=== PATIENT | female | born 1965 | race Asian ===

== ENCOUNTER 2019-01-27 17:09 | Inpatient (IN) | payer MEDICARE ==
[2019-01-27 18:00] VITALS: BMI 23.1
--- NOTE | 2019-01-27 18:01 | PDOC ---
History of Present Illness - General Chief Complaint: Injury Stated Complaint: FALL Time Seen by Provider: 01/27/19 17:54 History Source: Patient Exam Limitations: No Limitations - History of Present Illness Initial Comments: 01/27/19 18:10 53y M no known pmhx presents with dizziness - the patient states that yesterday she was walking down the stairs and she slipped and fell down the stairs. It was witnessed by her friend - friend said he is unsure if the patient hit her head however there was no LOC the patient seemed fine afterwards he is able to get up on her own and walk around and she was otherwise asymptomatic. This morning when she woke up she has been on feeling severely vertiginous/dizzy - states that she is unable to stand, walk around or sit up because it'll make her very nauseous and dizzy. The patient denies any headache, blurry vision, difficulty with her speech, neck pain, back pain, chest pain, palpitations, abdominal pain, blood in her stool. The patient states only problem is that when she moves she feels dizzy. The patient was brought to to the emergency department via ambulance with a c-collar. Translation provided through the patient's friend with the patient's permission Past History - Past Medical History Allergies/Adverse Reactions: Allergies Allergy/AdvReac Type Severity Reaction Status Date / Time No Known Allergies Allergy Verified 01/27/19 18:00 Home Medications: Ambulatory Orders NK [No Known Home Medication] 01/27/19 COPD: No - Suicide/Smoking/Psychosocial Hx Smoking History: Never smoked Information on smoking cessation initiated: No Hx Alcohol Use: No Drug/Substance Use Hx: No Review of Systems - Review of Systems Able to Perform ROS?: Yes Comments:: 01/27/19 18:13 Constitutional - no reported Fever, Chills, HEENT: no reported vision changes, sore throat Respiratory: no reported cough, sob, hemoptysis Cardiac: no reported chest pain, palpitations, leg swelling Abd/GI: no reported abd pain, nausea, vomiting, blood per rectum, melena, diarrhea : no reported dysuria, frequency, discharge Musculskelatal - no reported back pain, joint swelling skin - no reported bruising, erythema, rash neurological: +lightheaded/vertigo no reported headache, numbness, focal weakness, tingling, ataxia, hematologic: no reported easy bruising, easy bleeding *Physical Exam - Vital Signs Last Vital Signs Temp Pulse Resp BP Pulse Ox 97.8 F 59 L 16 95/53 L 98 01/27/19 17:15 01/27/19 17:15 01/27/19 17:15 01/27/19 17:15 01/27/19 17:15 - Physical Exam Comments: 01/27/19 18:13 GENERAL: The patient is awake, alert, and fully oriented, Nontoxic - in no acute distress. HEAD: Normocephalic, atraumatic. EYES: extraocular movements intact, sclera anicteric, conjunctiva clear. ENT: Normal voice, Moist mucous membranes. NECK: Normal range of motion, supple LUNGS: Breath sounds equal, clear to auscultation bilaterally. No wheezes, no rhonchi, no rales. HEART: Regular rate and rhythm, normal S1 and S2 without murmur, rub or gallop. ABDOMEN: Soft, nontender, normoactive bowel sounds. No guarding, no rebound. . No CVA tenderness EXTREMITIES: Normal range of motion, no edema. No clubbing or cyanosis. No cords, erythema, or tenderness. PSYCH: Normal mood, normal affect. SKIN: Warm, Dry, normal turgor, NEURO: Mental status: The patient is oriented x3. Cranial nerves: Cranial nerves II through XII are intact Motor: The upper extremities are 5 over 5 in all muscle groups. The lower extremities are 5 over 5 in all muscle groups. Negative pronator drift Sensation: Sensation is intact to light touch throughout. Cerebellar: Qkemov-[id number]-bzex is normal in both upper extremities. Heel-knee- chavez is normal in both lower extremities. rapid alternating movements are normal. Reflexes: Gait: Deferred Heart Score/ECG Review - ECG Impressions Comment:: 01/27/19 18:34 Twelve-lead EKG was performed and reviewed by me. There is normal sinus rhythm with a normal rate. Rate of 79 The axis is normal. The intervals are normal. There is normal R wave progression There are no ST or T wave abnormalities. Impression: Normal twelve-lead EKG ED Treatment Course - LABORATORY CBC & Chemistry Diagram: 01/29/19 07:30 01/29/19 07:30 Medical Decision Making - Medical Decision Making 01/27/19 18:14 53-year-old female without any past medical history presenting with suspected vertigo status post fall yesterday - without complaints of any pain, focal neurologic complaints including vision changes, dysarthria, numbness, tingling, headache, neck pain. Patient's exam is unremarkable aside her inability to tolerate significant movement - it should be if displaced otolith from her fall, we'll obtain blood work to rule out anemia, metabolic derangements, EKG to screen for arrhythmia. Give meclizine and Zofran for symptomatically relief 01/27/19 19:14 case signed ou tto dr. Mojica to fu with labs/ct results and reassess and dispo the patient *DC/Admit/Observation/Transfer Diagnosis at time of Disposition: Vertigo - Discharge Dispostion Condition at time of disposition: Stable - Referrals - Patient Instructions - Post Discharge Activity
[2019-01-27] MEDS ORDERED: MECLIZINE HCL 25 MG TABLET (FP) PO ONE (18:02)
[2019-01-27] MEDS ORDERED: SODIUM CHLORIDE 1,000 ML IV ONE (18:04)
[2019-01-27] MEDS ORDERED: METOCLOPRAMIDE HCL INJECTION 10 MG/2 ML VIAL IVPUSH ONE (18:15)
[2019-01-27] MEDS ORDERED: MECLIZINE HCL 25 MG TABLET (FP) ONE (19:12)
[2019-01-27] MEDS ORDERED: METOCLOPRAMIDE HCL INJECTION 10 MG/2 ML VIAL ONE (19:12)
[2019-01-27 19:29] LABS: BASO % 0.3 % (0-2.0); HEMATOCRIT 41.6 % (32.4-45.2); MCH 32.9 pg (25.7-33.7); MCHC 33.7 g/dl (32.0-36.0); MEAN CELL VOLUME 97.5 fl (80-96); MEAN PLT VOLUME 9.4 fl (7.5-11.1); MONO % 4.6 % (3.8-10.2); NEUT % 88.1 % (42.8-82.8); PLATELET COUNT 243 K/MM3 (134-434); RBC 4.27 M/mm3 (3.60-5.2); RDW 12.5 % (11.6-15.6); WHITE BLOOD COUNT 11.6 K/mm3 (4.0-10.0)
[2019-01-27 20:00] LABS: ALBUMIN 4.2 g/dl (3.4-5.0); ALK PHOS 80 U/L (45-117); ANION GAP 10 MMOL/L (8-16); BILIRUBIN,TOTAL 0.7 mg/dL (0.2-1); BLOOD UREA NITROGEN 16 mg/dL (7-18); CALCIUM 9.2 mg/dL (8.5-10.1); CHLORIDE 109 mmol/L (98-107); CO2 24 mmol/L (21-32); CREATININE 0.7 mg/dL (0.55-1.3); GLUCOSE,RANDOM 100 mg/dL (74-106); SGOT/AST 24 U/L (15-37); SGPT/ALT 26 U/L (13-61); SODIUM 144 mmol/L (136-145); TOT PROT 7.6 g/dl (6.4-8.2)
--- NOTE | 2019-01-27 21:02 | PDOC ---
*Physical Exam - Vital Signs Last Vital Signs Temp Pulse Resp BP Pulse Ox 97.8 F 59 L 16 95/53 L 98 01/27/19 17:15 01/27/19 17:15 01/27/19 17:15 01/27/19 17:15 01/27/19 17:15 ED Treatment Course - LABORATORY CBC & Chemistry Diagram: 01/27/19 19:09 01/27/19 19:09 - ADDITIONAL ORDERS Additional order review: Laboratory Results 01/27/19 19:09 Sodium 144 Potassium 4.0 Chloride 109 H Carbon Dioxide 24 Anion Gap 10 BUN 16 Creatinine 0.7 Est GFR (CKD-EPI)AfAm 116.27 Est GFR (CKD-EPI)NonAf 100.32 Random Glucose 100 Calcium 9.2 Total Bilirubin 0.7 AST 24 ALT 26 Alkaline Phosphatase 80 Creatine Kinase 149 Troponin I < 0.02 Total Protein 7.6 Albumin 4.2 01/27/19 19:09 RBC 4.27 MCV 97.5 H MCHC 33.7 RDW 12.5 MPV 9.4 Neutrophils % 88.1 H Lymphocytes % 7.0 L Monocytes % 4.6 Eosinophils % 0.0 Basophils % 0.3 - Medications Given in the ED: ED Medications Discontinued Medications Generic Name Dose Route Start Last Admin Trade Name Freq PRN Reason Stop Dose Admin Sodium Chloride 1,000 mls @ 1,000 mls/hr 01/27/19 18:04 01/27/19 19:19 Normal Saline - IV 01/27/19 19:03 1,000 mls/hr .Q1H ONE Administration Meclizine HCl 25 mg 01/27/19 18:02 01/27/19 19:19 Antivert - PO 01/27/19 18:03 25 mg ONCE ONE Administration Metoclopramide HCl 10 mg 01/27/19 18:15 01/27/19 19:19 Reglan Injection - IVPUSH 01/27/19 18:16 10 mg ONCE ONE Administration Medical Decision Making - Medical Decision Making 01/27/19 20:59 Received patient as signout from day team. Patient endorsing dizziness upon meeting her. No pain or other complaints. Patient's dizziness very positional No midline bony tenderness of CTL spine Patient refused Head impulse test Faint, fatiguing, R sided nystagmus while dizzy Normal test of skew Strength 5/5 in all extremities Normal FTN, no dysdiadokinesis, normal heel to chavez Patient still endorsing dizziness after meclizine, zofran and IVF Repeat vital signs 01/27/19 21:16 BP 115/70 Trial po valium 2mg, re-eval symptoms 01/27/19 21:21 CT non-con brain w/o acute injury/pathology No anemia 01/27/19 22:58 Minimal improvement with benzo, pt still endorsing severe positional vertigo, most intense when she turns to the right. I explained the Billy maneuver to the patient and she refused to attempt it will admit for observation 01/27/19 23:23 Gave report to inpatient team *DC/Admit/Observation/Transfer Diagnosis at time of Disposition: Vertigo - Referrals - Patient Instructions - Post Discharge Activity
[2019-01-27] MEDS ORDERED: diazePAM 2 MG TABLET PO ONE (21:12)
[2019-01-27] MEDS ORDERED: diazePAM 2 MG TABLET ONE (21:24)
[2019-01-27] MEDS ORDERED: MECLIZINE HCL 25 MG TABLET (FP) PO PRN (23:21)
[2019-01-27] MEDS ORDERED: LACTATED RINGERS SOLUTION 1,000 ML IV SCH (23:30)
--- NOTE | 2019-01-28 00:27 | PN ---
Teaching Attending Note Name of Resident: Pieter Shields ATTENDING PHYSICIAN STATEMENT I saw and evaluated the patient. I reviewed the resident's note and discussed the case with the resident. I agree with the resident's findings and plan as documented. SUBJECTIVE: Seen and examined; please refer to resident note for further historical information. Briefly, yesterday she sustained a fall and hit the R-posterior part of her head. No dizziness before or after. She was woken by vertigo sx overnight worse with head turning associated with rotational motion. She was having a hard time sitting up due to the sx. Refused Eply maneuver and repeat [place] Halpike. No nystagmus when I saw her. Head CT negative aside for involutional changes. Requested to observe patient for intractable vertigo; got 1x meclizine and 1x valium in ER. No Rx meds at home. 10 sys ROS done and negative aside from HPI PMH, PSH, FH, SH reviewed Home Medications Medication Instructions Recorded NK [No Known Home Medication] 01/27/19 OBJECTIVE: VS, labs, imaging reviewed NAD, AAO, resting in bed NC AT EOMI PERRLA RRR s1/2 no mgr Lungs CTAB, w/ sym exp NT ND +BS CN2-12 wnl, no fnd, no horizontal or vertical nystagmus, moves all 4 extremities Normal mood, appropriate affect EKG reviewed; no acute ischemic changes with nsr CT head reviewed CT neck pending ASSESSMENT AND PLAN: Patient presents from home with intractable vertigo after a fall 1) Vertigo -Give another dose of meclizine and valium; she had improvement with the initial dose of valium given in ER. Will make both available PRN. -Offer eply maneuver in AM -Neuro checks; if any change in neuro status of course broaden ddx and will consider further neuroimaging/recalling neuro. -As poor PO intake today due to her sx will give some LR overnight and ensure she is not orthostatic. Full Code
--- NOTE | 2019-01-28 00:37 | HP ---
CHIEF COMPLAINT: dizziness PCP: None HISTORY OF PRESENT ILLNESS: 53-year-old female with no past medical history presents to the hospital for one day of dizziness. Sure reports that she had a mechanical fall yesterday with minor injury to her right posterior Head.She states she felt normal afterwords and then later went to sleep. She states that when she woke up she felt severely vertiginous. She states that moving from right to left makes it worse, and sitting up, exacerbates the dizziness. She reports it feels like the room is spinning.She did not take anything for the dizziness. She denies this ever happening to her in the past.She denies any nausea, vomiting, diarrhea, fevers, chills, chest pain, or shortness of breath. She denies any sick contacts , recent travel, or any other history of medical issues. She reports that she feels slightly better after receiving the meclizine and Valium in the emergency room. ER course was notable for: (1) (2) (3) Recent Travel: none PAST MEDICAL HISTORY: none PAST SURGICAL HISTORY: none Social History: Smoking: never Alcohol: never Drugs: never Family History: denies Allergies No Known Allergies Allergy (Verified 01/27/19 18:00) HOME MEDICATIONS: Home Medications Medication Instructions Recorded NK [No Known Home Medication] 01/27/19 REVIEW OF SYSTEMS CONSTITUTIONAL: Absent: fever, chills, diaphoresis, generalized weakness, malaise, loss of appetite, weight change HEENT: Absent: rhinorrhea, nasal congestion, throat pain, throat swelling, difficulty swallowing, mouth swelling, ear pain, eye pain, visual changes CARDIOVASCULAR: Absent: chest pain, syncope, palpitations, irregular heart rate, lightheadedness , peripheral edema RESPIRATORY: Absent: cough, shortness of breath, dyspnea with exertion, orthopnea, wheezing, stridor, hemoptysis GASTROINTESTINAL: Absent: abdominal pain, abdominal distension, nausea, vomiting, diarrhea, constipation, melena, hematochezia GENITOURINARY: Absent: dysuria, frequency, urgency, hesitancy, hematuria, flank pain, genital pain MUSCULOSKELETAL: Absent: myalgia, arthralgia, joint swelling, back pain, neck pain SKIN: Absent: rash, itching, pallor HEMATOLOGIC/IMMUNOLOGIC: Absent: easy bleeding, easy bruising, lymphadenopathy, frequent infections ENDOCRINE: Absent: unexplained weight gain, unexplained weight loss, heat intolerance, cold intolerance NEUROLOGIC: dizziness Absent: headache, focal weakness or paresthesias, unsteady gait, seizure, mental status changes, bladder or bowel incontinence PSYCHIATRIC: Absent: anxiety, depression, suicidal or homicidal ideation, hallucinations. PHYSICAL EXAMINATION Vital Signs - 24 hr 01/27/19 01/27/19 17:15 21:15 Temperature 97.8 F 97.9 F Pulse Rate 59 L Pulse Rate [ 87 Apical] Respiratory 16 20 Rate Blood Pressure 95/53 L Blood Pressure 115/70 [Left Arm] O2 Sat by Pulse 98 100 Oximetry (%) GENERAL: A&Ox3, no acute distress EYES: PERRLA, EOMI ENT: Moist mucus membranes NECK: No JVD LUNGS: CTA, no wheezes HEART: RRR, no murmurs ABDOMEN: Soft, nontender, BS present MUSCULOSKELETAL: No CVA Tenderness EXTREMITIES: 2+ pulses, no edema. NEUROLOGICAL: Cranial nerves II-XII intact. no focal deficits Laboratory Results - last 24 hr 01/27/19 01/27/19 19:09 19:09 WBC 11.6 H RBC 4.27 Hgb 14.0 Hct 41.6 MCV 97.5 H MCH 32.9 MCHC 33.7 RDW 12.5 Plt Count 243 MPV 9.4 Absolute Neuts (auto) 10.2 H Neutrophils % 88.1 H Lymphocytes % 7.0 L Monocytes % 4.6 Eosinophils % 0.0 Basophils % 0.3 Nucleated RBC % 0 Sodium 144 Potassium 4.0 Chloride 109 H Carbon Dioxide 24 Anion Gap 10 BUN 16 Creatinine 0.7 Est GFR (CKD-EPI)AfAm 116.27 Est GFR (CKD-EPI)NonAf 100.32 Random Glucose 100 Calcium 9.2 Total Bilirubin 0.7 AST 24 ALT 26 Alkaline Phosphatase 80 Creatine Kinase 149 Troponin I < 0.02 Total Protein 7.6 Albumin 4.2 ASSESSMENT/PLAN: 53-year-old female with no past medical history presents to the hospital for one day of dizziness. #Benign Positional Vertigo: Based on history and constellation of symptoms I suspect this patient may have benign positional vertigo, less likely to have labyrinthitis or vestibular neuritis. Less likely central cause of vertigo. This may have occurred due to her. 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 #Disposition -Admit obs, anticipate discharge tomorrow Visit type - Emergency Visit Emergency Visit: Yes ED Registration Date: 01/27/19 Care time: The patient presented to the Emergency Department on the above date and was hospitalized for further evaluation of their emergent condition. - New Patient This patient is new to me today: Yes Date on this admission: 01/28/19 - Critical Care Critical Care patient: No
[2019-01-28] MEDS: MECLIZINE HCL 25 MG TABLET (FP) PO SCH ×3 (09:09→21:42)
[2019-01-28] MEDS: diazePAM 2 MG TABLET PO PRN (09:09)
[2019-01-28] MEDS: ENOXAPARIN NA (PORCINE) 40 MG/0.4 ML DISP.SYRIN SQ SCH (09:09)
[2019-01-28 09:24] LABS: HEMATOCRIT 33.9 % (32.4-45.2); HEMOGLOBIN 11.8 GM/dL (10.7-15.3); MCH 33.6 pg (25.7-33.7); MCHC 34.9 g/dl (32.0-36.0); MEAN CELL VOLUME 96.3 fl (80-96); MEAN PLT VOLUME 8.8 fl (7.5-11.1); PLATELET COUNT 228 K/MM3 (134-434); RBC 3.53 M/mm3 (3.60-5.2); RDW 12.7 % (11.6-15.6); WHITE BLOOD COUNT 8.8 K/mm3 (4.0-10.0)
[2019-01-28 09:47] LABS: CALCIUM 8.5 mg/dL (8.5-10.1); CREATININE 0.7 mg/dL (0.55-1.3); MAGNESIUM 2.6 mg/dL (1.8-2.4); POTASSIUM 3.4 mmol/L (3.5-5.1)
[2019-01-28] MEDS ORDERED: POTASSIUM CHLORIDE TABS 20 MEQ TABLET.ER (FP) PO ONE ×2 (12:24→22:00)
--- NOTE | 2019-01-28 13:01 | PN ---
Physical Exam: SUBJECTIVE: Patient seen and examined this AM. Daughter translated conversation. She states she is feeling worse today than yesterday. Endorses that she feels like the room is spinning around her. She also endorses nausea yesterday, but none this AM. OBJECTIVE: Vital Signs Period Temp Pulse Resp BP Sys/Coyle Pulse Ox Last 24 Hr 97.8 F-98.2 F 59-87 16-20 95-115/53-70 94-100 GEN: A&O, no acute distress HEENT: Moist mucus membranes, mild facial flushing/erythema HEART: RRR, no murmur noted LUNGS: CTA b/l no wheezes noted ABDOMEN: Soft, nontender, normoactive bowel sounds EXTREMITIES: no peripheral edema or calf tenderness, good capillary refill NEURO: CN II-XII in tact, no focal neurological deficits Laboratory Results - last 24 hr 01/27/19 01/27/19 01/28/19 19:09 19:09 08:55 WBC 11.6 H 8.8 RBC 4.27 3.53 L Hgb 14.0 11.8 Hct 41.6 33.9 D MCV 97.5 H 96.3 H MCH 32.9 33.6 MCHC 33.7 34.9 RDW 12.5 12.7 Plt Count 243 228 MPV 9.4 8.8 Absolute Neuts (auto) 10.2 H Neutrophils % 88.1 H Lymphocytes % 7.0 L Monocytes % 4.6 Eosinophils % 0.0 Basophils % 0.3 Nucleated RBC % 0 Sodium 144 Potassium 4.0 Chloride 109 H Carbon Dioxide 24 Anion Gap 10 BUN 16 Creatinine 0.7 Est GFR (CKD-EPI)AfAm 116.27 Est GFR (CKD-EPI)NonAf 100.32 Random Glucose 100 Calcium 9.2 Phosphorus Magnesium Total Bilirubin 0.7 AST 24 ALT 26 Alkaline Phosphatase 80 Creatine Kinase 149 Troponin I < 0.02 Total Protein 7.6 Albumin 4.2 01/28/19 08:55 WBC RBC Hgb Hct MCV MCH MCHC RDW Plt Count MPV Absolute Neuts (auto) Neutrophils % Lymphocytes % Monocytes % Eosinophils % Basophils % Nucleated RBC % Sodium 144 Potassium 3.4 L Chloride 113 H Carbon Dioxide 24 Anion Gap 7 L BUN 13 Creatinine 0.7 Est GFR (CKD-EPI)AfAm 116.27 Est GFR (CKD-EPI)NonAf 100.32 Random Glucose 120 H Calcium 8.5 Phosphorus 3.0 Magnesium 2.6 H Total Bilirubin AST ALT Alkaline Phosphatase Creatine Kinase Troponin I Total Protein Albumin Active Medications Generic Name Dose Route Start Last Admin Trade Name Yoshiq PRN Reason Stop Dose Admin Diazepam 2 mg 01/28/19 00:23 01/28/19 09:09 Valium - PO 2 mg Q8H PRN Administration VERTIGO Enoxaparin Sodium 40 mg 01/28/19 10:00 01/28/19 09:09 Lovenox - SQ 40 mg DAILY TANNA Administration Meclizine HCl 25 mg 01/28/19 08:00 01/28/19 09:09 Antivert - PO 25 mg TID TANNA Administration Potassium Chloride 40 meq 01/28/19 22:00 K-Dur - PO 01/28/19 22:01 ONCE ONE ASSESSMENT/PLAN: 53 yo female with no PMH admitted to the hospital for one day of dizziness after a fall down stairs with head trauma Vertigo 2/2 Post-Concussive syndrome -Head CT negative for acute fracture or bleed -Still with neck tenderness, Hard collar and CT cervical spine to r/o cervical fracture, can remove collar if negative -Meclezine 25 mg PO TID TANNA -Valium 2 mg PO Q8 PRN however will attempt to avoid benzo's if possible -Continue IV fluids FEN -LR @ 100 cc/hr -HypoKalemia, replete -Regular Diet DVT Prophylaxis -Lovenox 40 mg SQ Daily Disposition Med/Surg Visit type - Emergency Visit Emergency Visit: Yes ED Registration Date: 01/27/19 Care time: The patient presented to the Emergency Department on the above date and was hospitalized for further evaluation of their emergent condition. - New Patient This patient is new to me today: Yes Date on this admission: 01/28/19 - Critical Care Critical Care patient: No
--- NOTE | 2019-01-28 14:13 | PN ---
Teaching Attending Note Name of Resident: Giacomo Lai ATTENDING PHYSICIAN STATEMENT I saw and evaluated the patient. I reviewed the resident's note and discussed the case with the resident. I agree with the resident's findings and plan as documented. SUBJECTIVE: No fever or chills. still feel dizzy ( vertigo). No weakness, numbness or tingling. reports falling off the steps but no LOC. denies any pain in any f her joints. No neck pain. OBJECTIVE: NAD , prefer to close her eyes. dry MM. No nystagmus Lungs: CTAB CV: RRR, no MRG Abd:soft, NT, ND , NL BS . Ext : no edema or erythema. No pain over upper and lower extremities joints and long bones. MS: TTp on upper posterior C spine NEuro: EOMi, round equal pupils, reactive to light, no facial droop, strength 5/ 5 in upper and lower extremities proximally and distally. sensation to light touch . reflexes 2+ knee jerk and biceps b/l. ASSESSMENT AND PLAN: 53 y/o lady with no significant PMH who presented with vertigo after head trauma 1- Mechanical fall with head trauma. - head CT neg for bleed or fx. - Obtain C spine CT due to TTP over C spine. - hard collar until spine fx is r/o . No signs of neuro deficits 2- Vertigo, due to Post concussion syndrome. - make Meclizine standing - cont PRN valium - start IVF - f/u with neuro as out pt 3- DVT PX : Lovenox PT
--- NOTE | 2019-01-28 14:41 | EKG ---
Test Reason : Blood Pressure : / mmHG Vent. Rate : 079 BPM Atrial Rate : 079 BPM P-R Int : 172 ms QRS Dur : 094 ms QT Int : 414 ms P-R-T Axes : 052 065 057 degrees QTc Int : 474 ms NORMAL SINUS RHYTHM INCOMPLETE RBBB NO PREVIOUS ECGS AVAILABLE Confirmed by ISIDRO RUTH MD ([id number]) on 01/28/2019 2:41:41 PM Referred By: Confirmed By:ISIDRO RUTH MD
[2019-01-28] MEDS: SODIUM CHLORIDE 1,000 ML IV SCH (15:13)
[2019-01-29] MEDS: SODIUM CHLORIDE 1,000 ML IV SCH (05:24)
[2019-01-29] MEDS: MECLIZINE HCL 25 MG TABLET (FP) PO SCH ×3 (05:25→22:24)
[2019-01-29 08:07] LABS: HEMATOCRIT 35.3 % (32.4-45.2); HEMOGLOBIN 12.2 GM/dL (10.7-15.3); MCH 33.7 pg (25.7-33.7); MCHC 34.6 g/dl (32.0-36.0); MEAN CELL VOLUME 97.5 fl (80-96); MEAN PLT VOLUME 8.8 fl (7.5-11.1); PLATELET COUNT 211 K/MM3 (134-434); RBC 3.62 M/mm3 (3.60-5.2); RDW 12.7 % (11.6-15.6); WHITE BLOOD COUNT 5.3 K/mm3 (4.0-10.0)
[2019-01-29 08:35] LABS: CALCIUM 8.9 mg/dL (8.5-10.1); CREATININE 0.5 mg/dL (0.55-1.3); MAGNESIUM 2.5 mg/dL (1.8-2.4); PHOSPHOROUS 2.9 mg/dL (2.5-4.9)
[2019-01-29] MEDS ORDERED: NAPH,MB-DB/K PH,MBDB POWDER PACKET PO ONE (09:00)
[2019-01-29] MEDS: ENOXAPARIN NA (PORCINE) 40 MG/0.4 ML DISP.SYRIN SQ SCH (09:06)
--- NOTE | 2019-01-29 10:54 | PN ---
Teaching Attending Note Name of Resident: Tommy Hart ATTENDING PHYSICIAN STATEMENT I saw and evaluated the patient. I reviewed the resident's note and discussed the case with the resident. I agree with the resident's findings and plan as documented. SUBJECTIVE: Feels a little better. cont to have dizziness ( vertigo ) . no N/V , no change in vision . No weakness, numbness or tingling OBJECTIVE: NAD, looks more comfortable today Lungs: CTAB CV: RRR, no MRG Ext: no edema or erythema. NEuro: EOMI, round equal pupils, reactive to light, no facial droop, strength 5/ 5 in upper and lower extremities proximally and distally. sensation to light touch . reflexes 2+ knee jerk and biceps b/l. ASSESSMENT AND PLAN: 53 y/o lady with no significant PMH who presented with vertigo after head trauma 1- Mechanical fall with head trauma. No fx on head and neck CTs 2- Vertigo, due to Post concussion syndrome. - Cont standing Meclizine - cont PRN valium - Cont IVF - f/u with neuro as out pt 3- DVT PX: Lovenox PT eval dispo : depends on her sx
--- NOTE | 2019-01-29 10:55 | PN ---
Teaching Attending Note ATTENDING PHYSICIAN STATEMENT I saw and evaluated the patient. I reviewed the resident's note and discussed the case with the resident. I agree with the resident's findings and plan as documented. SUBJECTIVE: OBJECTIVE: ASSESSMENT AND PLAN:
[2019-01-29] MEDS: LACTATED RINGERS SOLUTION 1,000 ML/1,000 ML INFUS.BAG IV SCH (11:30)
--- NOTE | 2019-01-29 12:30 | PN ---
Physical Exam: SUBJECTIVE: Patient seen and examined this AM. States she is feeling better than yesterday, however still with significant vertigo/dizziness and is unable to sit up or move around much without exacerbating symptoms. OBJECTIVE: Vital Signs Period Temp Pulse Resp BP Sys/Coyle Pulse Ox Last 24 Hr 97.2 F-98.9 F 66-80 16-20 97-108/57-70 95-95 GEN: A&O, no acute distress HEENT: Moist mucus membranes, mild facial flushing/erythema HEART: RRR, no murmur noted LUNGS: CTA b/l no wheezes noted ABDOMEN: Soft, nontender, normoactive bowel sounds EXTREMITIES: no peripheral edema or calf tenderness, good capillary refill NEURO: CN II-XII in tact, no focal neurological deficits Laboratory Results - last 24 hr 01/29/19 01/29/19 07:30 07:30 WBC 5.3 RBC 3.62 Hgb 12.2 Hct 35.3 MCV 97.5 H MCH 33.7 MCHC 34.6 RDW 12.7 Plt Count 211 MPV 8.8 Sodium 145 Potassium 4.0 Chloride 113 H Carbon Dioxide 26 Anion Gap 5 L BUN 9 Creatinine 0.5 L Est GFR (CKD-EPI)AfAm 129.88 Est GFR (CKD-EPI)NonAf 112.06 Random Glucose 85 Calcium 8.9 Phosphorus 2.9 Magnesium 2.5 H Active Medications Generic Name Dose Route Start Last Admin Trade Name Freq PRN Reason Stop Dose Admin Diazepam 2 mg 01/28/19 00:23 01/28/19 09:09 Valium - PO 2 mg Q8H PRN Administration VERTIGO Enoxaparin Sodium 40 mg 01/28/19 10:00 01/29/19 09:06 Lovenox - SQ 40 mg DAILY TANNA Administration Lactated Ringer's 1,000 ml in 1,000 mls @ 100 mls/hr 01/29/19 09:45 Lactated Ringers Solution IV ASDIR TANNA Meclizine HCl 25 mg 01/28/19 08:00 01/29/19 05:25 Antivert - PO 25 mg TID TANNA Administration ASSESSMENT/PLAN: 53 yo female with no PMH admitted to the hospital for one day of dizziness after a fall down stairs with head trauma Vertigo 2/2 Post-Concussive syndrome -Head CT negative for acute fracture or bleed -CT Cervical spine negative for fracture -Meclezine 25 mg PO TID TANNA -Valium 2 mg PO Q8 PRN however will attempt to avoid benzo's if possible -Continue IV fluids -Physical Therapy Eval FEN -LR @ 100 cc/hr -HypoKalemia, replete -Regular Diet DVT Prophylaxis -Lovenox 40 mg SQ Daily Disposition Med/Surg Visit type - Emergency Visit Emergency Visit: Yes ED Registration Date: 01/27/19 Care time: The patient presented to the Emergency Department on the above date and was hospitalized for further evaluation of their emergent condition. - New Patient This patient is new to me today: No - Critical Care Critical Care patient: No
[2019-01-30] MEDS: MECLIZINE HCL 25 MG TABLET (FP) PO SCH ×3 (05:59→21:08)
[2019-01-30] MEDS: LACTATED RINGERS SOLUTION 1,000 ML/1,000 ML INFUS.BAG IV SCH (08:42)
[2019-01-30] MEDS: diazePAM 2 MG TABLET PO PRN (08:43)
[2019-01-30] MEDS: ENOXAPARIN NA (PORCINE) 40 MG/0.4 ML DISP.SYRIN SQ SCH (09:06)
--- NOTE | 2019-01-30 14:19 | PN ---
Progress Note (short form) - Note Progress Note: Subjective: no fever or chills, remains dizzy , could not even sit at edge of bed. does not feel SOB but feels her lungs are full Objective: Vital Signs: Last Vital Signs Temp Pulse Resp BP Pulse Ox 99 F 68 18 103/65 97 01/30/19 08:44 01/30/19 08:44 01/30/19 08:44 01/30/19 08:44 01/30/19 09:36 Physical Exam: NAD Lungs: CTAB CV: RRR, no MRG Ext: no edema or erythema. NEuro: EOMI, round equal pupils, reactive to light, no facial droop, strength 5/ 5 in upper and lower extremities proximally and distally. sensation to light touch . reflexes 2+ knee jerk and biceps b/l. ASSESSMENT AND PLAN: 53 y/o lady with no significant PMH who presented with vertigo after head trauma 1- Mechanical fall with head trauma. 2- Vertigo, due to Post concussion syndrome. - Cont standing Meclizine - cont PRN valium - dc IVF - f/u with neuro as out pt 3- DVT PX: Lovenox PT eval dispo : still severely debilitated , can't even sit . Visit type - Emergency Visit Emergency Visit: Yes ED Registration Date: 01/27/19 Care time: The patient presented to the Emergency Department on the above date and was hospitalized for further evaluation of their emergent condition. - New Patient This patient is new to me today: No - Critical Care Critical Care patient: No
[2019-01-31] MEDS: MECLIZINE HCL 25 MG TABLET (FP) PO SCH ×2 (06:37→14:49)
[2019-01-31] MEDS ORDERED: NAPH,MB-DB/K PH,MBDB POWDER PACKET PO ONE (08:09)
[2019-01-31] MEDS: ENOXAPARIN NA (PORCINE) 40 MG/0.4 ML DISP.SYRIN SQ SCH (09:32)
[2019-01-31] MEDS ORDERED: DOCUSATE SODIUM 100 MG CAPSULE (FP) PO SCH ×2 (11:00→22:00)
--- NOTE | 2019-01-31 12:01 | PN ---
Physical Exam: SUBJECTIVE: Patient seen and examined this AM. She states she feels similar with minimal improvement. She feels okay as rest but feels "very bad" whenever she tries to move. OBJECTIVE: Vital Signs Period Temp Pulse Resp BP Sys/Coyle Pulse Ox Last 24 Hr 97.9 F-98.6 F 69-85 18-20 92-141/63-87 97-97 GEN: A&O, no acute distress HEENT: Moist mucus membranes, mild facial flushing/erythema HEART: RRR, no murmur noted LUNGS: CTA b/l no wheezes noted ABDOMEN: Soft, nontender, normoactive bowel sounds EXTREMITIES: no peripheral edema or calf tenderness, good capillary refill, no pain on ROM or point tenderness of left ankle NEURO: CN II-XII in tact, no focal neurological deficits Active Medications Generic Name Dose Route Start Last Admin Trade Name Freq PRN Reason Stop Dose Admin Diazepam 2 mg 01/28/19 00:23 01/30/19 08:43 Valium - PO 2 mg Q8H PRN Administration VERTIGO Docusate Sodium 100 mg 01/31/19 22:00 Colace - PO BID TANNA Enoxaparin Sodium 40 mg 01/28/19 10:00 01/31/19 09:32 Lovenox - SQ 40 mg DAILY TANNA Administration Meclizine HCl 25 mg 01/28/19 08:00 01/31/19 06:37 Antivert - PO 25 mg TID TANNA Administration ASSESSMENT/PLAN: 53 yo female with no PMH admitted to the hospital for one day of dizziness after a fall down stairs with head trauma Vertigo 2/2 Post-Concussive syndrome -Head CT negative for acute fracture or bleed -CT Cervical spine negative for fracture -Meclezine 25 mg PO TID TANNA -Valium 2 mg PO Q8 PRN however will attempt to avoid benzo's if possible -Physical Therapy Eval -Pt is stable for discharge however unable to ambulate, would recommend rehab, however pt is without insurance -Discussed with case management about possible options / speaking to family about out of pocket rehab vs going home without any additional assistance FEN -None -Monitor and replete -Regular Diet DVT Prophylaxis -Lovenox 40 mg SQ Daily Disposition Med/Surg, still concerns that she would be difficult to discharge home without any assistance other than family support Visit type - Emergency Visit Emergency Visit: Yes ED Registration Date: 01/31/19 Care time: The patient presented to the Emergency Department on the above date and was hospitalized for further evaluation of their emergent condition. - New Patient This patient is new to me today: No - Critical Care Critical Care patient: No
[2019-01-31 13:11] VITALS: BP 103/59; PULSE 88; TEMP 98.5
--- NOTE | 2019-01-31 13:43 | PN ---
Teaching Attending Note Name of Resident: Giacomo Lai ATTENDING PHYSICIAN STATEMENT I saw and evaluated the patient. I reviewed the resident's note and discussed the case with the resident. I agree with the resident's findings and plan as documented. SUBJECTIVE: No fever or chills. feels a little better but still dizzy with movement . No N/ V, no SOB OBJECTIVE: NAD Lungs: CTAB CV: RRR, no MRG Ext: no edema or erythema. ASSESSMENT AND PLAN: 53 y/o lady with no significant PMH who presented with vertigo after head trauma 1- Mechanical fall with head trauma. 2- Vertigo, due to Post concussion syndrome. - Cont Meclizine as needed after dc - f/u with neuro as out pt - will give prescription for vestibular rehab will dc home . will refer to out pt vestibular rehab. patient is illegal and does not have insurance and can not afford to pay out of pocket for SNF. she can 't afford [facility] .
== END 2019-01-31 18:38 | disposition home or self-care (01) | DRG 54 ==
LOC: JER 17:09 → JERBED 23:05 → J7W 01-28 04:16 → OBSVTOIN 01-31 08:09
PROVIDERS: ADMIT Internal Medicine; ATTEND Internal Medicine
DX: F07.81 Postconcussional syndrome (principal); H81.10 Benign paroxysmal vertigo, unspecified ear; E87.6 Hypokalemia; S09.8XXA Other specified injuries of head, initial encounter; W10.8XXA Fall (on) (from) other stairs and steps, initial encounter; Y92.89 Other specified places as the place of occurrence of the external cause
CPT/HCPCS: 36415; 70450-TC; 72125-TC; 73610-TC-LT-FY; 73630-TC-LT; 80048; 80053; 82550; 83735; 84100; 84484; 85025; 85027; 93005; 93010; 97116-GP; 97162-GP; 99283-25; G0378; J7030